=== PATIENT | male | born 1990 | race Caucasian/White ===

== ENCOUNTER 2017-04-22 00:13 | Emergency (ER) | payer MEDICAID ==
[2017-04-22] MEDS ORDERED: Diph,Pert(Acell),Tet Vac 0.5 ML SYR IM ONE (00:29)
[2017-04-22] MEDS ORDERED: HYDROCODONE/APAP 7.5/325MG TABLET PO ONE (01:06)
[2017-04-22] MEDS ORDERED: CEPHALEXIN 500 MG CAPSULE PO STA (01:06)
--- NOTE | 2017-04-22 01:07 | Emergency Department Record ---
History of Present Illness - General Chief Complaint: Laceration(s) Stated Complaint: NEED STITCHES Time Seen by Provider: 04/22/17 00:27 Mode of Arrival: Ambulatory - History of Present Illness Initial Commments: A large heavy glass fell onto his left great toe shattering and cutting the top of his great left toe. He is unable to dorsiflex it. Tetanus is NOT utd. Onset/Timin -: Minutes(s) - Related Data Patient Tetanus UTD (within 5 yrs): No Home Medications Medication Instructions Recorded Confirmed Last Taken Losartan/Hydrochlorothiazide 1 each PO DAILY 04/22/17 04/22/17 Unknown [Losartan-Hctz 100-25 mg Tab] Omeprazole [Prilosec] 20 mg PO DAILY 04/22/17 04/22/17 Unknown Previous Rx's Medication Instructions Recorded Cephalexin [Keflex] 500 mg PO QID #39 cap 04/22/17 Hydrocodone/Acetaminophen [[place] 1 each PO Q8HR PRN #20 tablet 04/22/17 7.5-325 Tablet] Allergies Allergy/AdvReac Type Severity Reaction Status Date / Time No Known Drug Allergies Allergy Verified 04/22/17 00:16 Travel Screening - Travel/Exposure Within Last 30 Days Have you traveled within the last 30 days?: No Review of Systems Reviewed: No additional complaints except as noted below Constitutional: Reports: As per HPI. Denies: Chills, Fever, Malaise, Night sweats, Weakness, Weight change Eyes: Reports: As per HPI. Denies: Eye discharge, Eye pain, Photophobia, Vision change ENT: Reports: As per HPI. Denies: Congestion, Dental pain, Ear pain, Epistaxis , Hearing loss, Throat pain Respiratory: Reports: As per HPI. Denies: Cough, Dyspnea, Hemoptysis, Stridor, Wheezes Cardiovascular: Reports: As per HPI. Denies: Arrhythmia, Chest pain, Dyspnea on exertion, Edema, Murmurs, Orthopnea, Palpitations, Paroxysmal nocturnal dyspnea, Rheumatic Fever, Syncope Endocrine: Reports: As per HPI. Denies: Fatigue, Heat or cold intolerance, Polydipsia, Polyuria Gastrointestinal: Reports: As per HPI. Denies: Abdominal pain, Constipation, Diarrhea, Hematemesis, Hematochezia, Melena, Nausea, Vomiting Genitourinary: Reports: As per HPI. Denies: Dysuria, Frequency, Hematuria, Incontinence, Retention, Testicular pain, Testicular mass, Urgency Musculoskeletal: Reports: As per HPI. Denies: Arthralgia, Back pain, Gout, Joint swelling, Myalgia, Neck pain Skin: Reports: As per HPI. Denies: Bruising, Change in color, Change in hair/ nails, Lesions, Pruritus, Rash Neurological: Reports: As per HPI. Denies: Abnormal gait, Confusion, Headache, Numbness, Paresthesias, Seizure, Tingling, Tremors, Vertigo, Weakness Psychiatric: Reports: As per HPI. Denies: Anxiety, Auditory hallucinations, Depression, Homicidal thoughts, Suicidal thoughts, Visual hallucinations Hematological/Lymphatic: Reports: As per HPI. Denies: Anemia, Blood Clots, Easy bleeding, Easy bruising, Swollen glands Past Medical History - SOCIAL HISTORY Smoking Status: Current every day smoker Alcohol Use: None Drug Use: None - RESPIRATORY Hx Respiratory Disorders: No - CARDIOVASCULAR Hx Cardio Disorders: Yes Hx Heart Attack: Yes - NEURO Hx Neuro Disorders: No - GI Hx GI Disorders: Yes Hx Reflux: Yes - Hx Genitourinary Disorders: No - ENDOCRINE Hx Endocrine Disorders: No - MUSCULOSKELETAL Hx Musculoskeletal Disorders: No - PSYCH Hx Psych Problems: No - HEMATOLOGY/ONCOLOGY Hx Hematology/Oncology Disorders: No Family Medical History Any Significant Family History?: No Physical Exam - General General Appearance: Alert, Oriented x3, Cooperative, No acute distress - Head Head exam: Normal inspection - Eye Eye exam: Normal appearance, PERRL Pupils: Normal accommodation - ENT ENT exam: Normal exam, Mucous membranes moist, Normal external ear exam, Normal orophraynx, TM's normal bilaterally Ear exam: Normal external inspection. negative: External canal tenderness Nasal Exam: Normal inspection. negative: Discharge, Sinus tenderness Mouth exam: Normal external inspection, Tongue normal Teeth exam: Normal inspection. negative: Dental caries Throat exam: Normal inspection. negative: Tonsillar erythema, Tonsillar exudate - Neck Neck exam: Normal inspection, Full ROM. negative: Tenderness - Respiratory Respiratory exam: Normal lung sounds bilaterally. negative: Respiratory distress - Cardiovascular Cardiovascular Exam: Regular rate, Normal rhythm, Normal heart sounds - GI/Abdominal GI/Abdominal exam: Soft, Normal bowel sounds. negative: Tenderness - Rectal Rectal exam: Deferred - exam: Deferred - Extremities Extremities exam: Normal inspection, Full ROM, Normal capillary refill, Other ( 2 cm linear lac to dorsal toe middle phalange; no dorsiflexion on ROM + 100% tendon lac; circulation abnd sensation intact distallly). negative: Tenderness - Back Back exam: Reports: Normal inspection, Full ROM. Denies: Muscle spasm, Rash noted, Tenderness - Neurological Neurological exam: Alert, Normal gait, Oriented X3, Reflexes normal - Psychiatric Psychiatric exam: Normal affect, Normal mood - Skin Skin exam: Dry, Intact, Normal color, Warm Course Vital Signs 04/22/17 00:20 Temperature 98.4 F Pulse Rate 118 H Respiratory 22 Rate Blood Pressure 178/93 Pulse Ox 99 - Reevaluation(s) Reevaluation #1: PROCEDURE: 2% no epi 5 cc digital block; sterile technique, scrubbed, prepped, draped in sterile fashion, copious irrigation, wound explored; 100% extensor tendor lac, no FB's found on exploration, copious irrigation repeated. Closed skin with #3 4.0 prolene simple interrupteds. Patient tolerated well. 04/22/17 01:09 Medical Decision Making - Management Options MDM Management: Additional Work-up Planned (e.g. ADM/Transfer/OP Study) (Dr. Nicholson Rn Tele for tendon repair of toe) - Data Complexity MDM Data: X-Ray Ordered and/or Reviewed (Great toe left foot: no fracture, no FB seen per ED physician.) Disposition Disposition: Discharge Clinical Impression: Laceration of extensor tendon of left foot Qualifiers: Encounter type: initial encounter Qualified Code(s): S96.922A - Laceration of unspecified muscle and tendon at ankle and foot level, left foot, initial encounter Laceration of toe Qualifiers: Encounter type: initial encounter Toe: great toe Damage to nail status: with damage Foreign body presence: without foreign body Laterality: left Qualified Code(s): S91.212A - Laceration without foreign body of left great toe with damage to nail, initial encounter Disposition: Home, Self-Care Condition: (1) Good Instructions: Laceration (ED) Additional Instructions: Take antibiotics until gone as directed. [place] as directed as needed for pain. Post op shoe. Keep wound clean and dry. Follow with Dr. Nicholson for repair of extensor tendon great toe as instructed. Prescriptions: Hydrocodone/Acetaminophen [[place] 7.5-325 Tablet] 1 each PO Q8HR PRN #20 tablet PRN Reason: Pain - General Cephalexin [Keflex] 500 mg PO QID #39 cap Referrals: REYNOLD NICHOLSON [DOCTOR OF PODIATRY MEDICINE] - Forms: Patient Portal Access Quality - Quality Measures Quality Measures: N/A - Blood Pressure Screening Blood Pressure Classification: Hypertensive Reading Systolic Measurement: 178 Diastolic Measurement: 93 Screening for High Blood Pressure: Not Eligible for Measure [[id number]] Not Eligible Reason: Active Diagnosis of Hypertension
--- NOTE | 2017-04-23 07:08 | RADIOLOGY REPORT ---
EXAM: LEFT GREAT TOE HISTORY: INJURY. TECHNIQUE: Three views of the left great toe were obtained. Comparison: None. Encounter: Initial. FINDINGS: Mild degenerative changes of the first MTP joint. Negative for an acute fracture or dislocation. Mild diffuse soft tissue swelling. No radiopaque foreign body. IMPRESSION: NEGATIVE FOR ACUTE FRACTURE. MILD SOFT TISSUE SWELLING. MILD DEGENERATIVE CHANGE. JOB NUMBER: [id number] MTDD
== END 2017-04-22 01:33 | disposition home or self-care (01) ==
LOC: ER 00:13
DX: S91.112A Laceration without foreign body of left great toe without damage to nail, initial encounter (principal); S96.122A Laceration of muscle and tendon of long extensor muscle of toe at ankle and foot level, left foot, initial encounter; W25.XXXA Contact with sharp glass, initial encounter
CPT/HCPCS: 12031; 73660; 90715; 96372; 99283; 99284